=== PATIENT | female | born 1965 | race Two or more races ===

== ENCOUNTER 2022-03-13 19:27 | Emergency (ER) | payer BC, MEDICAID ==
[~2022-03-13] VITALS: Ht 157.5 cm; Wt 68.0 kg
[2022-03-13 19:28] VITALS: BP 135/83
--- NOTE | 2022-03-13 19:29 | NUR ---
PT TAKEN TO BED 09.
--- NOTE | 2022-03-13 19:44 | NUR ---
Dr. Loco examining patient.
--- NOTE | 2022-03-13 19:46 | NUR ---
ED TOLENTINO AT BEDSIDE EXAMINING PT.
[2022-03-13] MEDS ORDERED: KETOROLAC 60 MG/2 ML VIAL IM ONE (19:50)
--- NOTE | 2022-03-13 19:53 | NUR ---
X-Ray at bedside.
--- NOTE | 2022-03-13 20:08 | NUR ---
PROVIDED ICE BACK TO PT WITH LEG ELEVATED
[2022-03-13] MEDS ORDERED: IBUP-2213 PO (20:20)
[2022-03-13 20:33] VITALS: BP 135/83
--- NOTE | 2022-03-13 20:33 | NUR ---
Patient discharged with v/s stable. Written and verbal after care instructions given and explained. Patient alert, oriented and verbalized understanding of instructions. WHEELCHAIR TO CAR BY EMT All questions addressed prior to discharge. ID band removed. Patient advised to follow up with PMD. Rx of IBUPROFEN given. . Opportunity to ask questions provided and answered.
== END 2022-03-13 20:33 | disposition home or self-care (01) ==
LOC: MED 19:27
DX: M25.562 Pain in left knee (principal); E11.9 Type 2 diabetes mellitus without complications; Z79.4 Long term (current) use of insulin; Z79.899 Other long term (current) drug therapy; Z72.89 Other problems related to lifestyle; Z98.890 Other specified postprocedural states
CPT/HCPCS: 73562; 73610; 96372; 99284; J1885; Q0092